=== PATIENT | male | born 1950 | race Caucasian/White ===

== ENCOUNTER 2023-07-17 07:20 | Emergency (ER) | payer OTHER ==
[~2023-07-17] VITALS: Ht 182.9 cm; Wt 79.3 kg
[2023-07-17 07:47] VITALS: BP 182/71; PULSE 65; RESP 16; TEMP 97.7; O2SAT 98
[2023-07-17] MEDS ORDERED: PRED20TA2 PO (08:27)
[2023-07-17] MEDS ORDERED: MELO7.5T7 PO (08:27)
== END 2023-07-17 08:28 | disposition home or self-care (01) ==
LOC: ER 07:20
DX: S03.00XA Dislocation of jaw, unspecified side, initial encounter (principal); X58.XXXA Exposure to other specified factors, initial encounter; Y93.89 Activity, other specified; Y92.89 Other specified places as the place of occurrence of the external cause; Y99.8 Other external cause status